=== PATIENT | male | born 1995 | race Caucasian/White ===

== ENCOUNTER 2016-04-16 15:49 | Emergency (ER) | payer BC, OTHER ==
[~2016-04-16] VITALS: Ht 180.3 cm; Wt 68.0 kg
--- OUTSIDE RECORDS SUMMARY | 2016-04-16 15:57 | XMS REPORT ---
Author Author [facility] Address [address] [place], [place] [id number] Phone [phone] Summary purpose CCDA Sent to [facility] Chief Complaint and Reason for Visit No authorized Reason for Visit (Admitting Diagnosis) is available for this visit. Problem list No authorized problems tracked for continuity of care are available for this visit. Encounters No authorized problems tracked for encounter diagnoses are available for this visit. Medications No home medications recorded for this patient visit Allergies, adverse reactions, alerts Allergen Category Ingredient Status Reaction Severity Onset No known drug allergies No known drug allergies No known drug allergies Active Immunizations No immunizations recorded for this patient visit Relevant diagnostic tests and/or laboratory data No authorized results are available for this patient visit History of procedures No procedures recorded for this patient visit. Functional status No functional or cognitive status observations are available for this visit. Vital signs No authorized vital signs are available for this visit. Social history No Social History or smoking status observations were recorded for this visit. ( Unknown if ever smoked.) Treatment Plan No treatment plan text is available for this visit. Hospital discharge instructions No discharge instruction text is available for this visit.
[2016-04-16] MEDS ORDERED: NS 100 ML (IVPB) BAG IV ONE (16:45)
[2016-04-16] MEDS ORDERED: IOHEXOL 350 MG/ML 100 ML (OMNIPAQUE 350) VIAL IV ONE (16:45)
[2016-04-16 16:50] LABS: BILIRUBIN,URINE NEGATIVE (NEGATIVE); KETONES,URINE NEGATIVE (NEGATIVE); LEUKOCYTE ESTERASE ,URINE 1+ (NEGATIVE); NITRITE,URINE NEGATIVE (NEGATIVE); PH,URINE 8 (5-9); PROTEIN,URINE 2+ (NEGATIVE); UROBILINOGEN,URINE 4 MG/DL (NORMAL)
[2016-04-16 16:55] LABS: BASOPHILS % (AUTO) 1 % (0-10); EOSINOPHILS # (AUTO) 0.2 10^3/uL (0.0-0.3); EOSINOPHILS % (AUTO) 3 % (0-10); LYMPHOCYTES # (AUTO) 1.7 X 10^3 (1.0-4.0); LYMPHOCYTES % (AUTO) 26 % (12-44); MEAN CORPUSCULAR HEMOGLOBIN 30 PG (25-34); MEAN CORPUSCULAR HGB CONC 35 G/DL (32-36); MEAN CORPUSCULAR VOLUME 87 FL (80-99); MEAN PLATELET VOLUME 10.8 FL (7.4-10.4); MONOCYTES # (AUTO) 0.8 X 10^3 (0.0-1.0); MONOCYTES % (AUTO) 12 % (0-12); NEUTROPHILS # (AUTO) 3.8 X 10^3 (1.8-7.8); NEUTROPHILS % (AUTO) 58 % (42-75); PLATELET COUNT 222 10^3/uL (130-400); RED BLOOD COUNT 4.83 10^6/uL (4.35-5.85); RED CELL DISTRIBUTION WIDTH 13.5 % (10.0-14.5); WHITE BLOOD COUNT 6.5 10^3/uL (4.3-11.0)
[2016-04-16 17:00] LABS: PROTHROMBIN TIME PATIENT 13.1 SEC (12.2-14.7)
--- NOTE | 2016-04-16 17:01 | ED Abdominal Pain ---
General Chief Complaint: Rect Problems Stated Complaint: BLOOD IN STOOL/CRAMPING CONSTIPATION Nursing Triage Note: Ambulatory to ED 8 with reports of rectal bleeding, rectal prolapse and severely hard stools for the past several years. Patient reports that he is concerned about having rectal cancer due to what [employer] has convinced him he is having by the symptoms that he provided. Patient reports that he was referred to the emergency department "because you accept walk-in's" from [facility]. Patient denies any nausea, vomiting, diarrhea, constipation, abdominal pain, trouble urinating, or any other acute concerns. Sepsis Screen: No Definite Risk Source of Information: Patient Exam Limitations: No Limitations History of Present Illness Time Seen By Provider: 16:58 Initial Comments This 20-year-old male presents with complaint of rectal bleeding and a fear that he has colon cancer. Patient has had intermittent bright red rectal bleeding for the last several months with an associated small rectal prolapse that he is able to self reduce. This occurs after the patient has particularly hard stools. Patient denies any unexplained weight loss. He's had no scleral icterus. He's had no associated nausea or vomiting. He denies fever or chills. Allergies and Home Medications Allergies Coded Allergies: No Known Drug Allergies (Unverified , 04/16/16) Review of Systems Constitutional: No chills, No fever EENTM: No Blurred Vision Respiratory: Denies Cough Cardiovascular: Denies Chest Pain Gastrointestinal: Denies Abdominal Pain, Blood Streaked Stools ConstipatedDenies Nausea Genitourinary: Denies Burning, Denies Frequency Musculoskeletal: No back pain Skin: No rash Endocrine: No Symptoms Reported Hematologic/Lymphatic: No Symptoms Reported Past Qqqjivh-Ustppf-Cqcaxl Hx Patient Social History Alcohol Use: Occasionally Uses Recreational Drug Use: No Smoking Status: Current Everyday Smoker Type Used: Cigarettes Recent Foreign Travel: No Contact w/Someone Who Travel: No Recent Infectious Disease Expo: No Recent Hopitalizations: No Physical Abuse Screen: No Sexual Abuse: No Immunizations Up To Date Tetanus Booster (TDap): Unknown Seasonal Allergies Seasonal Allergies: No Surgeries HX Surgeries: Yes Surgeries: Appendectomy Respiratory Hx Respiratory Disorders: No Cardiovascular Hx Cardiac Disorders: No Neurological Hx Neurological Disorders: No Reproductive System Hx Reproductive Disorders: No Genitourinary Hx Genitourinary Disorders: No Gastrointestinal Hx Gastrointestinal Disorders: No Musculoskeletal Hx Musculoskeletal Disorders: No Endocrine Hx Endocrine Disorders: No HEENT HX ENT Disorders: No Cancer Hx Cancer: No Psychosocial Hx Psychiatric Problems: No Integumentary HX Skin/Integumentary Disorder: No Blood Transfusions Hx Blood Disorders: No Reviewed Nursing Assessment Reviewed/Agree w Nursing PMH: Yes Physical Exam Vital Signs VS - Last 72 Hours, by Label 04/16/16 16:30 Temp 98.4 Pulse 86 Resp 18 B/P 122/84 Pulse Ox 100 O2 Delivery Room Air Capillary Refill : Less Than 3 Seconds General Appearance: WD/WN no apparent distress HEENT: normal ENT inspection Neck: normal inspection Respiratory: lungs clear normal breath sounds Cardiovascular: regular rate, rhythm no murmur Gastrointestinal: normal bowel sounds non tender soft Rectal: normal exam normal rectal tone heme negative stool Genital/Rectal: normal genital exam Extremities: normal range of motion non-tender Back: normal inspection Male: normal genitalia Neurologic/Psychiatric: no motor/sensory deficits alert normal mood/affect Skin: normal color warm/dry Progress/Results/Core Measures Results/Orders Lab Results Laboratory Tests Test 04/16/16 16:40 Range/Units Alanine Aminotransferase (ALT/SGPT) 12 0-55 U/L Albumin 4.4 3.2-4.5 G/DL Alkaline Phosphatase 49 40-136 U/L Anion Gap 9 5-14 MMOL/L Aspartate Amino Transf (AST/SGOT) 21 5-34 U/L BUN/Creatinine Ratio 16 Basophils # (Auto) 0.0 0.0-0.1 10^3/uL Basophils (%) (Auto) 1 0-10 % Blood Urea Nitrogen 17 7-18 MG/DL Calcium Level 9.3 8.5-10.1 MG/DL Carbon Dioxide Level 23 21-32 MMOL/L Chloride Level 107 98-107 MMOL/L Creatinine 1.09 0.60-1.30 MG/DL Eosinophils # (Auto) 0.2 0.0-0.3 10^3/uL Eosinophils (%) (Auto) 3 0-10 % Estimat Glomerular Filtration Rate > 60 Glucose Level 104 70-105 MG/DL Hematocrit 42 40-54 % Hemoglobin 14.7 13.3-17.7 G/DL INR Comment 1.0 0.8-1.4 Lipase 38 8-78 U/L Lymphocytes # (Auto) 1.7 1.0-4.0 X 10^3 Lymphocytes (%) (Auto) 26 12-44 % Mean Corpuscular Hemoglobin 30 25-34 PG Mean Corpuscular Hemoglobin Concent 35 32-36 G/DL Mean Corpuscular Volume 87 80-99 FL Mean Platelet Volume 10.8 H 7.4-10.4 FL Monocytes # (Auto) 0.8 0.0-1.0 X 10^3 Monocytes (%) (Auto) 12 0-12 % Neutrophils # (Auto) 3.8 1.8-7.8 X 10^3 Neutrophils (%) (Auto) 58 42-75 % Platelet Count 222 130-400 10^3/uL Potassium Level 4.8 3.6-5.0 MMOL/L Prothrombin Time 13.1 12.2-14.7 SEC Red Blood Count 4.83 4.35-5.85 10^6/uL Red Cell Distribution Width 13.5 10.0-14.5 % Sodium Level 139 135-145 MMOL/L Total Bilirubin 0.4 0.1-1.0 MG/DL Total Protein 7.1 6.4-8.2 G/DL Urine Amorphous Sediment LARGE YE PHOSPHATE H /LPF Urine Bacteria NEGATIVE /HPF Urine Bilirubin NEGATIVE NEGATIVE Urine Casts NONE /LPF Urine Clarity SLIGHTLY CLOUDY Urine Color YELLOW Urine Crystals NONE /LPF Urine Culture Indicated NO Urine Glucose (UA) NEGATIVE NEGATIVE Urine Ketones NEGATIVE NEGATIVE Urine Leukocyte Esterase 1+ H NEGATIVE Urine Mucus NEGATIVE /LPF Urine Nitrite NEGATIVE NEGATIVE Urine Protein 2+ H NEGATIVE Urine RBC NONE /HPF Urine RBC (Auto) NEGATIVE NEGATIVE Urine Specific [place] 1.015 L 1.016-1.022 Urine Squamous Epithelial Cells NONE /HPF Urine Urobilinogen 4 H NORMAL MG/DL Urine WBC NONE /HPF Urine pH 8 5-9 White Blood Count 6.5 4.3-11.0 10^3/uL My Orders Orders-HEYDI JAIN MD Cbc With Automated Diff (04/16/16 16:30) Comprehensive Metabolic Panel (04/16/16 16:30) Lipase (04/16/16 16:30) Ua Culture If Indicated (04/16/16 16:30) Protime With Inr (04/16/16 16:30) Ct Abdomen/Pelvis W (04/16/16 16:30) Iohexol Injection (Omnipaque 350 Mg/Ml 1 (04/16/16 16:45) Ns (Ivpb) (Sodium Chloride 0.9% Ivpb Bag (04/16/16 16:45) Fecal Occult Bedside (04/16/16 16:40) Medications Given in ED Current Medications Medications Dose Ordered Sig/Joaquim Route Start Time Stop Time Status Last Admin Dose Admin Iohexol 100 ml ONCE ONCE IV 04/16/16 16:45 04/16/16 16:46 DC 04/16/16 16:47 100 ML Sodium Chloride 100 ml ONCE ONCE IV 04/16/16 16:45 04/16/16 16:46 DC 04/16/16 16:47 100 ML Vital Signs/I&O Vital Sign - Last 12Hours 04/16/16 16:30 Temp 98.4 Pulse 86 Resp 18 B/P 122/84 Pulse Ox 100 O2 Delivery Room Air Blood Pressure Mean: 97 Point of Care Testing Fecal Occult: Negative Progress Note : Time: 17:42 Progress Note The patient's CT of the abdomen and pelvis was unremarkable. Patient's INR, CBC , and CMP were similarly benign. Departure Impression Impression: Primary Impression: Rectal bleeding Disposition: HOME, SELF-CARE Condition: Unchanged Departure-Patient Inst. Decision time for Depature: 17:43 Referrals: TUSAHR STOKES MD NO,LOCAL PHYSICIAN (PCP) Primary Care Physician Patient Instructions: Inflammatory Bowel Disease (DC) Add. Discharge Instructions: Follow with Dr. Stokes tomorrow. Return if any problems. All discharge instructions reviewed with patient and/or family. Voiced understanding. HEYDI JAIN MD Apr 16, 2016 17:01
[2016-04-16 17:11] LABS: ALANINE AMINOTRANSFERASE 12 U/L (0-55); ALBUMIN 4.4 G/DL (3.2-4.5); ANION GAP 9 MMOL/L (5-14); ASPARTATE AMINO TRANSFERASE 21 U/L (5-34); BILIRUBIN,TOTAL 0.4 MG/DL (0.1-1.0); BLOOD UREA NITROGEN 17 MG/DL (7-18); BUN/CREATININE RATIO 16; CALCIUM 9.3 MG/DL (8.5-10.1); CARBON DIOXIDE 23 MMOL/L (21-32); CHLORIDE 107 MMOL/L (98-107); CREATININE SERUM 1.09 MG/DL (0.60-1.30); GFR ESTIMATED > 60; GLUCOSE 104 MG/DL (70-105); LIPASE 38 U/L (8-78); POTASSIUM 4.8 MMOL/L (3.6-5.0); SODIUM 139 MMOL/L (135-145); TOTAL PROTEIN 7.1 G/DL (6.4-8.2)
--- NOTE | 2016-04-16 17:24 | Diagnostic Imaging Report ---
PROCEDURE: CT abdomen and pelvis with contrast. TECHNIQUE: Multiple contiguous axial images were obtained through the abdomen and pelvis after administration of intravenous contrast. INDICATION: Abdominal pain and bloody stools COMPARISON: None FINDINGS: The lung bases are clear. The liver appears unremarkable. The gallbladder is contracted which is probably post prandial. The portal vein appears patent. The pancreas, spleen, adrenal glands and kidneys appear unremarkable today. No free fluid, adenopathy or inflammatory change is demonstrated. There is moderate amount of stool in the colon. No bowel wall thickening or distention is seen. The abdominal aorta appears normal in caliber. Urinary bladder appears unremarkable. No acute osseous abnormality is seen. IMPRESSION: No acute abnormality is demonstrated. Dictated by: Dictated on workstation # [id number]
[2016-04-16 17:55] VITALS: BP 125/81
== END 2016-04-16 17:55 | disposition home or self-care (01) ==
LOC: EDUNIT# 15:49 → ER 15:54
DX: K62.5 Hemorrhage of anus and rectum (principal); K59.00 Constipation, unspecified; F17.210 Nicotine dependence, cigarettes, uncomplicated
CPT/HCPCS: 36415; 74177; 80053; 81000; 83690; 85025; 85610